=== PATIENT | male | born 1940 | race Caucasian/White ===

== ENCOUNTER → 2023-07-24 | Outpatient (CLI) | payer MEDICARE ==
[2023-07-24 18:07] LABS: HCT 34.5 % (39.6-50.0); MCH 24.4 pg (27.0-32.0); MCV 84.4 FL (80.0-97.0); Mean Platelet Volume 11.8 FL (9.5-12.2); NRBC Per 100 WBC 0 X 10*3/uL (0.00-0.01); Platelet Count 246 X 10*3/uL (140-440); RBC 4.09 X 10*6/uL (4.40-5.60); RDW 18.4 % (11.5-14.5); WBC 6.87 X 10*3/uL (4.50-10.00)
== END | disposition home or self-care (01) ==
LOC: LABWHC1 13:21
PROVIDERS: ATTEND Specialist
DX: D64.9 Anemia, unspecified (principal); K92.2 Gastrointestinal hemorrhage, unspecified
CPT/HCPCS: 36415; 85027

== ENCOUNTER → 2023-08-28 | Outpatient (CLI) | payer MEDICARE ==
[2023-08-28 14:38] LABS: HCT 32.2 % (39.6-50.0); HGB 9.1 g/dL (13.0-17.0); MCH 24.3 pg (27.0-32.0); MCHC 28.3 g/dL (32.0-37.0); MCV 85.9 FL (80.0-97.0); Mean Platelet Volume 11.5 FL (9.5-12.2); NRBC Per 100 WBC 0 X 10*3/uL (0.00-0.01); Platelet Count 252 X 10*3/uL (140-440); RBC 3.75 X 10*6/uL (4.40-5.60); RDW 16.9 % (11.5-14.5); WBC 6.47 X 10*3/uL (4.50-10.00)
== END | disposition home or self-care (01) ==
LOC: LABWHC1 11:13
PROVIDERS: ATTEND Specialist
DX: K92.2 Gastrointestinal hemorrhage, unspecified (principal); D64.9 Anemia, unspecified
CPT/HCPCS: 36415; 85027

== ENCOUNTER → 2023-09-03 | Outpatient (CLI) | payer MEDICARE ==
[2023-09-03 17:08] LABS: Appearance,BF Cloudy; Color,BF Yellow
[2023-09-03 17:40] LABS: Nucleated Cells, Body Fluid 111 /uL; RBC, Body Fluid 4056 /uL
[2023-09-03 17:46] LABS: Mononuclear WBC,Body Fluid 89 %; Polynuclear WBC,Body Fluid 11 %; Total Cells Counted,Body Fluid 100
== END | disposition home or self-care (01) ==
LOC: LABWHC1 15:23
PROVIDERS: ATTEND Orthopaedic Surgery
DX: M25.561 Pain in right knee (principal); M70.51 Other bursitis of knee, right knee; T84.84XA Pain due to internal orthopedic prosthetic devices, implants and grafts, initial encounter; Z96.651 Presence of right artificial knee joint
CPT/HCPCS: 36415; 85379; 85652; 86140; 87070; 87075; 87205; 89050

== ENCOUNTER → 2023-09-25 | Outpatient (CLI) | payer MEDICARE ==
[2023-09-25 16:19] LABS: HCT 34.4 % (39.6-50.0); HGB 10.1 g/dL (13.0-17.0); MCH 24.3 pg (27.0-32.0); MCHC 29.4 g/dL (32.0-37.0); MCV 82.7 FL (80.0-97.0); Mean Platelet Volume 11.3 FL (9.5-12.2); NRBC Per 100 WBC 0 X 10*3/uL (0.00-0.01); Platelet Count 249 X 10*3/uL (140-440); RBC 4.16 X 10*6/uL (4.40-5.60); RDW 16.1 % (11.5-14.5); WBC 7.01 X 10*3/uL (4.50-10.00)
== END | disposition home or self-care (01) ==
LOC: LABWHC1 10:53
PROVIDERS: ATTEND Specialist
DX: K92.2 Gastrointestinal hemorrhage, unspecified (principal); D64.9 Anemia, unspecified
CPT/HCPCS: 36415; 85027

== ENCOUNTER → 2023-10-23 | Outpatient (CLI) | payer MEDICARE ==
[2023-10-23 15:15] LABS: HCT 38.9 % (39.6-50.0); HGB 11.6 g/dL (13.0-17.0); MCH 24.5 pg (27.0-32.0); MCHC 29.8 g/dL (32.0-37.0); MCV 82.2 FL (80.0-97.0); Mean Platelet Volume 12.3 FL (9.5-12.2); NRBC Per 100 WBC 0 X 10*3/uL (0.00-0.01); Platelet Count 250 X 10*3/uL (140-440); RBC 4.73 X 10*6/uL (4.40-5.60); RDW 18.3 % (11.5-14.5); WBC 6.91 X 10*3/uL (4.50-10.00)
== END | disposition home or self-care (01) ==
LOC: LABWHC1 11:13
PROVIDERS: ATTEND Specialist
DX: D64.9 Anemia, unspecified (principal); K92.2 Gastrointestinal hemorrhage, unspecified
CPT/HCPCS: 36415; 85027